=== PATIENT | male | born 1970 | race Two or more races ===

== ENCOUNTER 2016-05-12 12:21 | Inpatient (IN) | payer OTHER ==
[2016-05-12 13:36] VITALS: BMI 41.5
--- NOTE | 2016-05-12 16:47 | HP ---
CIWA Score - CIWA Score Nausea/Vomitin Muscle Tremors: 2 Anxiety: 3 Agitation: 2 Paroxysmal Sweats: 3 Orientation: 0-Oriented Tacttile Disturbances: 2-Mild Itch/Numbness/Burn Auditory Disturbances: 0-None Visual Disturbances: 0-None Headache: 0-None Present CIWA-Ar Total Score: 15 Admission ROS BHS - HPI Chief Complaint: I need help to stop using drugs and alcohol. Allergies/Adverse Reactions: Allergies Allergy/AdvReac Type Severity Reaction Status Date / Time No Known Allergies Allergy Verified 05/12/16 15:44 History of Present Illness: 45 y/o m pt with a h/o chronic alcoholism and crack abuse seeking detox. Exam Limitations: No Limitations - Ebola screening Have you traveled outside of the country in the last 21 days: No Have you had contact with anyone from an Ebola affected area: No Have you been sick,other than usual withdrawal symptoms: No Do you have a fever: No - Review of Systems Constitutional: Malaise, Night Sweats, Changes in sleep, Unintentional Wgt. Loss (approx. 100 lbs x 6 months) EENT: reports: Blurred Vision Respiratory: reports: No Symptoms reported Cardiac: reports: Chest Pain (on rt side), Chest Tightness GI: reports: Diarrhea : reports: Other (s/p orchiectomy) Musculoskeletal: reports: Back Pain Integumentary: reports: Rash Neuro: reports: Tremors Endocrine: reports: Increased Hunger, Increased Thirst, Increased Urine Hematology: reports: Easy Bleeding Psychiatric: reports: Agitated, Anxious, Depressed Other Systems: Reviewed and Negative Patient History - Patient Medical History Hx Anemia: No Hx Asthma: No Hx Chronic Obstructive Pulmonary Disease (COPD): No Hx Cancer: No Hx Cardiac Disorders: No Hx Congestive Heart Failure: No Hx Hypertension: Yes (not on meds) Hx Hypercholesterolemia: Yes (NO MED) Hx Pacemaker: No HX Cerebrovascular Accident: No Hx Seizures: No Hx Dementia: No Hx Diabetes: Yes (Type II not on meds.) Hx Gastrointestinal Disorders: No Hx Liver Disease: No Hx Genitourinary Disorders: No Hx Sexually Transmitted Disorders: No Hx Renal Disease (ESRD): No Hx Thyroid Disease: No Hx Human Immunodeficiency Virus (HIV): No (LAST 2010 NEGATIVE) Hx Hepatitis C: No Hx Depression: Yes Hx Suicide Attempt: No Hx Bipolar Disorder: Yes (NO MED) Hx Schizophrenia: No - Patient Surgical History Past Surgical History: No Hx Neurologic Surgery: No Hx Cataract Extraction: No Hx Cardiac Surgery: No Hx Lung Surgery: No Hx Breast Surgery: No Hx Breast Biopsy: No Hx Abdominal Surgery: No Hx Appendectomy: No Hx Cholecystectomy: No Hx Genitourinary Surgery: No Hx Section: No Hx Orthopedic Surgery: No Other Surgical History: 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 History Hx Alcohol Use: Yes Hx Substance Use: Yes Substance Use Type: Alcohol, Cocaine Hx Substance Use Treatment: Yes - Substances Abused Alcohol Route: Oral Frequency: Daily Amount used: 1/2 PINT WHISKEY/6PK BEER Age of first use: 11 Date of Last Use: 05/12/16 Cocaine Route: Smoking Frequency: Daily Amount used: 3-4 BAGS Age of first use: 14 Date of Last Use: 05/11/16 Family Disease History - Family Disease History Family Disease History: Diabetes: Mother, Other: Brother (ALCOHOL) Admission Physical Exam BHS - Vital Signs Vital Signs: Vital Signs - 24 hr 05/12/16 13:32 Temperature 98.9 F Pulse Rate 82 Respiratory 18 Rate Blood Pressure 159/72 45 y/o m obese pt aox3 in nad ambulating - Physical General Appearance: Yes: Disheveled, Obese HEENTM: Yes: EOMI, Hearing grossly Normal, Normocephalic, Normal Voice, KITTY, Nasal Congestion Respiratory: Yes: Chest Non-Tender, Lungs Clear, Normal Breath Sounds, No Respiratory Distress Neck: Yes: No masses,lesions,Nodules, Supple Breast: Yes: Within Normal Limits Cardiology: Yes: Regular Rhythm, Regular Rate, S1, S2 Abdominal: Yes: Non Tender, Soft, Increased Bowel Sounds, Surgical Scar (well healed 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) Genitourinary: Yes: Frequency, Other (only rt testicle) Back: Yes: Decreased Range of Motion Musculoskeletal: Yes: Back pain Extremities: Yes: Tremors Neurological: Yes: clinical researcher II-XII NML intact, Fully Oriented Integumentary: Yes: Rash (inner thighs) Lymphatic: Yes: Within Normal Limits - Diagnostic (1) Alcohol dependence with uncomplicated withdrawal Current Visit: Yes Status: Chronic (2) Cocaine dependence, uncomplicated Current Visit: Yes Status: Chronic (3) Diabetes mellitus Current Visit: Yes Status: Chronic Qualifiers: Diabetes mellitus type: type 2 (4) Hypertension Current Visit: Yes Status: Chronic Qualifiers: Hypertension type: essential hypertension Qualified Code(s): I10 - Essential (primary) hypertension (5) Nicotine dependence Current Visit: Yes Status: Chronic Qualifiers: Nicotine product type: cigarettes Substance use status: uncomplicated Qualified Code(s): F17.210 - Nicotine dependence, cigarettes, uncomplicated (6) Obesity Current Visit: Yes Status: Chronic Qualifiers: Obesity severity: unspecified obesity severity (7) History of orchiectomy, unilateral Current Visit: No Status: Inactive Cleared for Admission [facility] - Detox or Rehab [facility] Level of Care: Medically Managed Detox Regimen/Protocol: Librium [facility] Breath Alcohol Content Breath Alcohol Content: 0.008 Urine Drug Screen - Results Drug Screen Negative: No Urine Drug Screen Results: BOY-Cocaine
[2016-05-12] MEDS ORDERED: chlordiazePOXIDE HCL 25 MG CAPSULE PO PRN (17:11)
[2016-05-12] MEDS ORDERED: LOPERAMIDE HCL 2 MG CAPSULE PO PRN (17:11)
[2016-05-12] MEDS ORDERED: P-EPHED 60MG/TRIPROLIDI 2.5MG TABLET PO PRN (17:11)
[2016-05-12] MEDS ORDERED: ACETAMINOPHEN 325 MG TABLET (FP) PO PRN (17:11)
[2016-05-12] MEDS ORDERED: MAGNESIUM CITRATE 300 ML BOTTLE PO PRN (17:11)
[2016-05-12] MEDS ORDERED: MAG HYDROX/AL HYDROX/SIMETH 30 ML UNIT-DOSE CUP PO PRN (17:11)
[2016-05-12] MEDS ORDERED: IBUPROFEN 400 MG TABLET (FP) PO PRN (17:11)
[2016-05-12] MEDS ORDERED: MENTHOL/PHENOL 1 EACH UD MM PRN (17:11)
[2016-05-12] MEDS ORDERED: MAGNESIUM HYDROX 2400MG/30ML ORAL SUSPENSION 30 ML CUP PO PRN (17:11)
[2016-05-12] MEDS ORDERED: hydrOXYzine PAMOATE 25 MG CAPSULE (FP) PO PRN (17:11)
[2016-05-12] MEDS ORDERED: guaiFENesin/D-METHORPHAN HB 10 ML UNIT-DOSE CUPS PO PRN (17:11)
[2016-05-12] MEDS ORDERED: NICOTINE POLACRILEX 4 MG GUM BC PRN (17:11)
[2016-05-12] MEDS: chlordiazePOXIDE HCL 25 MG CAPSULE PO SCH (22:46)
[2016-05-12] MEDS: diphenhydrAMINE HCL 50 MG CAPSULE PO PRN (22:46)
[2016-05-12] MEDS: THIAMINE HCL 100 MG TABLET (FP) PO SCH (22:46)
[2016-05-12 23:00] LABS: URINE APPEARANCE CLEAR; URINE BILIRUBIN NEGATIVE (NEGATIVE); URINE BLOOD NEGATIVE (NEGATIVE); URINE COLOR LTYELLOW; URINE GLUCOSE (UA) NEGATIVE (NEGATIVE); URINE KETONE NEGATIVE (NEGATIVE); URINE LEUK ESTERASE NEGATIVE (NEGATIVE); URINE NITRITE NEGATIVE (NEGATIVE); URINE PROTEIN NEGATIVE (NEGATIVE); URINE UROBILINOGEN NEGATIVE E.U./dl (0.2-1.0)
[2016-05-12] MEDS: TOLNAFTATE 1% CREAM 15 GM TUBE TP SCH (23:09)
[2016-05-13] MEDS: chlordiazePOXIDE HCL 25 MG CAPSULE PO SCH ×4 (05:49→22:53)
--- NOTE | 2016-05-13 07:35 | CONSULT ---
[facility] Psychiatric Consult - Data Date of interview: 05/13/16 Admission source: [facility] Identifying data: This is 45 years old male with history of Bipolar disorder intopxicated with: Alcohol, Cocaine, Nicotine Substance Abuse History: - Smoking Cessation. Smoking history: Current every day smoker. Have you smoked in the past 12 months: Yes. Aproximately how many cigarettes per day: 10. Cigars Per Day: 0. Hx Chewing Tobacco Use: No. Initiated information on smoking cessation: Yes. 'Breaking Loose' booklet given : 05/12/16. - Substance & Tx. History. Hx Alcohol Use: Yes. Hx Substance Use : Yes. Substance Use Type: Alcohol, Cocaine. Hx Substance Use Treatment: Yes. - Substances Abused. Alcohol. Route: Oral. Frequency: Daily. Amount used: 1/2 PINT WHISKEY/6PK BEER. Age of first use: 11. Date of Last Use: 05/12. Cocaine. Route: Smoking. Frequency: Daily. Amount used: 3-4 BAGS. Age of first use: 14. Date of Last Use: 05/11/16 Medical History: Obesity morbid, DM, HTN Psychiatric History: Patient reports to carry Bipolar disorder, reports most recent psychiatric admission on more then 10 years ago, reports no m,edications taking prior to admission Physical/Sexual Abuse/Trauma History: Denies Additional Comment: Observation Mental Status Exam - Mental Status Exam Alert and Oriented to: Person Cognitive Function: Fair Patient Appearance: Unkempt Mood: Anxious Affect: Appropriate Patient Behavior: Cooperative Speech Pattern: Appropriate Voice Loudness: Normal Thought Process: Goal Oriented Thought Disorder: Being Controlled Hallucinations: Denies Suicidal Ideation: Denies Homicidal Ideation: Denies Insight/Judgement: Fair Sleep: Difficulty falling asleep Appetite: Weight gain Muscle strength/Tone: Normal Gait/Station: Shuffling Additional Comments: Observation Psychiatric Findings - Problem List ([place] 1, 2,3) (1) Alcohol dependence with uncomplicated withdrawal Current Visit: Yes Status: Chronic (2) Cocaine dependence, uncomplicated Current Visit: Yes Status: Chronic (3) Nicotine dependence Current Visit: Yes Status: Chronic Qualifiers: Nicotine product type: cigarettes Substance use status: uncomplicated Qualified Code(s): F17.210 - Nicotine dependence, cigarettes, uncomplicated (4) Bipolar disorder Current Visit: Yes Status: Suspected (5) Drug-induced mood disorder Current Visit: Yes Status: Acute - Initial Treatment Plan Initial Treatment Plan: Observation
[2016-05-13 10:14] LABS: MCH 29.1 pg (25.7-33.7); MCHC 32.2 g/dl (32.0-35.9); MEAN CELL VOLUME 90.2 fl (80-96); MEAN PLT VOLUME 9.7 fl (7.5-11.1); PLATELET COUNT 217 K/MM3 (134-434); RDW 14.3 % (11.9-15.9); WHITE BLOOD COUNT 10.6 K/mm3 (4.0-10.0)
[2016-05-13] MEDS: TOLNAFTATE 1% CREAM 15 GM TUBE TP SCH ×2 (10:18→23:36)
[2016-05-13] MEDS: PRENATAL VITAMINS W/ FOLIC ACID TABLET (FP) PO SCH (10:18)
[2016-05-13] MEDS: NICOTINE 21 MG/24 HOURS TOPICAL PATCH TD SCH (10:18)
[2016-05-13 10:41] LABS: ALBUMIN 3.8 g/dl (3.4-5.0); ALK PHOS 65 U/L (45-117); ANION GAP 9 (8-16); BILIRUBIN,TOTAL 0.9 mg/dL (0.2-1.0); CALCIUM 9.1 mg/dL (8.5-10.1); CO2 27 mmol/L (21-32); CREATININE 0.7 mg/dL (0.7-1.3); GLUCOSE,RANDOM 134 mg/dL (74-106); SGOT/AST 16 U/L (15-37); SGPT/ALT 34 U/L (12-78); TOT PROT 7.4 g/dl (6.4-8.2)
--- NOTE | 2016-05-13 11:38 | PN ---
S CIWA - CIWA Score Nausea/Vomitin Muscle Tremors: 2 Anxiety: 2 Agitation: 2 Paroxysmal Sweats: 2 Orientation: 0-Oriented Tacttile Disturbances: 0-None Auditory Disturbances: 0-None Visual Disturbances: 0-None Headache: 0-None Present CIWA-Ar Total Score: 10 BHS Progress Note (SOAP) Subjective: SWEATS , INTERRUPTED SLEEP Objective: 05/13/16 11:46 Vital Signs Temperature 99.1 F 05/13/16 09:58 Pulse Rate 74 05/13/16 09:58 Respiratory Rate 16 05/13/16 09:58 Blood Pressure 144/88 05/13/16 09:58 O2 Sat by Pulse Oximetry (%) Laboratory Tests 05/12/16 05/12/16 05/13/16 16:00 21:56 05:51 WBC RBC Hgb Hct MCV MCHC RDW Plt Count MPV Sodium Potassium Chloride Carbon Dioxide Anion Gap BUN Creatinine Creat Clearance w eGFR POC Glucometer 172 133 Random Glucose Hemoglobin A1c % Calcium Total Bilirubin AST ALT Alkaline Phosphatase Total Protein Albumin Urine Color Ltyellow Urine Appearance Clear Urine pH 6.0 Ur Specific [place] 1.018 Urine Protein Negative Urine Glucose (UA) Negative Urine Ketones Negative Urine Blood Negative Urine Nitrite Negative Urine Bilirubin Negative Urine Urobilinogen Negative Ur Leukocyte Esterase Negative 05/13/16 05/13/16 05/13/16 06:20 06:20 06:20 WBC 10.6 H RBC 5.48 Hgb 15.9 Hct 49.4 H MCV 90.2 MCHC 32.2 RDW 14.3 Plt Count 217 MPV 9.7 Sodium 139 Potassium 4.8 Chloride 103 Carbon Dioxide 27 Anion Gap 9 BUN 13 Creatinine 0.7 Creat Clearance w eGFR > 60 POC Glucometer Random Glucose 134 H Hemoglobin A1c % 6.5 H Calcium 9.1 Total Bilirubin 0.9 AST 16 D ALT 34 D Alkaline Phosphatase 65 Total Protein 7.4 Albumin 3.8 Urine Color Urine Appearance Urine pH Ur Specific [place] Urine Protein Urine Glucose (UA) Urine Ketones Urine Blood Urine Nitrite Urine Bilirubin Urine Urobilinogen Ur Leukocyte Esterase PT AOX3 IN NAD AMBULATING Assessment: 05/13/16 11:47 WITHDRAWL SX'S NIDDM Plan: CONT. DETOX INCREASE FLUIDS ASA 81 MG METFORMIN 500MG IN AM
--- NOTE | 2016-05-13 16:12 | EKG ---
Test Reason : Blood Pressure : / mmHG Vent. Rate : 068 BPM Atrial Rate : 068 BPM P-R Int : 156 ms QRS Dur : 078 ms QT Int : 396 ms P-R-T Axes : 017 -02 021 degrees QTc Int : 421 ms NORMAL SINUS RHYTHM MINIMAL VOLTAGE CRITERIA FOR LVH, MAY BE NORMAL VARIANT SEPTAL INFARCT , AGE UNDETERMINED ABNORMAL ECG NO PREVIOUS ECGS AVAILABLE Confirmed by ZAC MCINTYRE MD ([id number]) on 05/13/2016 4:12:17 PM Referred By: Confirmed By:ZAC MCINTYRE MD
[2016-05-13] MEDS: THIAMINE HCL 100 MG TABLET (FP) PO SCH (22:53)
[2016-05-13] MEDS: diphenhydrAMINE HCL 50 MG CAPSULE PO PRN (22:55)
[2016-05-14] MEDS: chlordiazePOXIDE HCL 25 MG CAPSULE PO SCH ×3 (05:59→18:05)
[2016-05-14] MEDS: NICOTINE 21 MG/24 HOURS TOPICAL PATCH TD SCH (10:29)
[2016-05-14] MEDS: PRENATAL VITAMINS W/ FOLIC ACID TABLET (FP) PO SCH (10:29)
[2016-05-14] MEDS: TOLNAFTATE 1% CREAM 15 GM TUBE TP SCH ×2 (10:29→22:17)
--- NOTE | 2016-05-14 11:43 | PN ---
[facility] CIWA - CIWA Score Nausea/Vomitin-No Nausea/No Vomiting Muscle Tremors: 4-Moderate,w/Arms Extend Anxiety: 2 Agitation: 3 Paroxysmal Sweats: 3 Orientation: 0-Oriented Tacttile Disturbances: 0-None Auditory Disturbances: 0-None Visual Disturbances: 0-None Headache: 0-None Present CIWA-Ar Total Score: 12 S Progress Note (SOAP) Subjective: sweats shakes diarrhea interrupted sleep Objective: 05/14/16 11:39 Vital Signs Temperature 97.7 F 05/14/16 09:47 Pulse Rate 78 05/14/16 09:47 Respiratory Rate 16 05/14/16 09:47 Blood Pressure 133/78 05/14/16 09:47 O2 Sat by Pulse Oximetry (%) Laboratory Tests 05/12/16 05/12/16 05/13/16 16:00 21:56 05:51 WBC RBC Hgb Hct MCV MCHC RDW Plt Count MPV Sodium Potassium Chloride Carbon Dioxide Anion Gap BUN Creatinine Creat Clearance w eGFR POC Glucometer 172 133 Random Glucose Hemoglobin A1c % Calcium Total Bilirubin AST ALT Alkaline Phosphatase Total Protein Albumin Urine Color Ltyellow Urine Appearance Clear Urine pH 6.0 Ur Specific [place] 1.018 Urine Protein Negative Urine Glucose (UA) Negative Urine Ketones Negative Urine Blood Negative Urine Nitrite Negative Urine Bilirubin Negative Urine Urobilinogen Negative Ur Leukocyte Esterase Negative RPR Titer 05/13/16 05/13/16 05/13/16 06:20 06:20 06:20 WBC 10.6 H RBC 5.48 Hgb 15.9 Hct 49.4 H MCV 90.2 MCHC 32.2 RDW 14.3 Plt Count 217 MPV 9.7 Sodium 139 Potassium 4.8 Chloride 103 Carbon Dioxide 27 Anion Gap 9 BUN 13 Creatinine 0.7 Creat Clearance w eGFR > 60 POC Glucometer Random Glucose 134 H Hemoglobin A1c % Calcium 9.1 Total Bilirubin 0.9 AST 16 D ALT 34 D Alkaline Phosphatase 65 Total Protein 7.4 Albumin 3.8 Urine Color Urine Appearance Urine pH Ur Specific [place] Urine Protein Urine Glucose (UA) Urine Ketones Urine Blood Urine Nitrite Urine Bilirubin Urine Urobilinogen Ur Leukocyte Esterase RPR Titer Nonreactive 05/13/16 05/13/16 06:20 16:30 WBC RBC Hgb Hct MCV MCHC RDW Plt Count MPV Sodium Potassium Chloride Carbon Dioxide Anion Gap BUN Creatinine Creat Clearance w eGFR POC Glucometer 165 Random Glucose Hemoglobin A1c % 6.5 H Calcium Total Bilirubin AST ALT Alkaline Phosphatase Total Protein Albumin Urine Color Urine Appearance Urine pH Ur Specific [place] Urine Protein Urine Glucose (UA) Urine Ketones Urine Blood Urine Nitrite Urine Bilirubin Urine Urobilinogen Ur Leukocyte Esterase RPR Titer awake/alert ambulating no acute distress Assessment: 05/14/16 11:42 withdrawal sx Plan: continue detox increase fluids immodium prn
[2016-05-14] MEDS: diphenhydrAMINE HCL 50 MG CAPSULE PO PRN (22:16)
[2016-05-14] MEDS: chlordiazePOXIDE 5 MG CAPSULE PO SCH (22:16)
[2016-05-14] MEDS: THIAMINE HCL 100 MG TABLET (FP) PO SCH (22:16)
[2016-05-15] MEDS: chlordiazePOXIDE 5 MG CAPSULE PO SCH ×3 (06:16→17:33)
[2016-05-15] MEDS: PRENATAL VITAMINS W/ FOLIC ACID TABLET (FP) PO SCH (10:14)
[2016-05-15] MEDS: TOLNAFTATE 1% CREAM 15 GM TUBE TP SCH ×2 (10:15→22:11)
[2016-05-15] MEDS: NICOTINE 21 MG/24 HOURS TOPICAL PATCH TD SCH (10:15)
--- NOTE | 2016-05-15 10:24 | PN ---
S Progress Note (SOAP) Subjective: ALERT,IRRITABLE,INTERRUPTED SLEEP Objective: 05/15/16 10:23 Vital Signs Temperature 98.4 F 05/15/16 09:54 Pulse Rate 72 05/15/16 09:54 Respiratory Rate 20 05/15/16 09:54 Blood Pressure 136/67 05/15/16 09:54 O2 Sat by Pulse Oximetry (%) 05/15/16 10:23 BM 169 Assessment: 05/15/16 10:23 WITHDRAWAL SYMPTOM Plan: CONTINUE DETOX,BGM MONITORING,DISCHARGE IN AM
--- NOTE | 2016-05-15 18:32 | PN ---
BHS Progress Note Note: RECEIVED NURSE CALL FINGER STICK 200 CONTINUE DETOX
[2016-05-15] MEDS: chlordiazePOXIDE HCL 10 MG CAPSULE PO SCH (22:11)
[2016-05-15] MEDS: diphenhydrAMINE HCL 50 MG CAPSULE PO PRN (22:11)
[2016-05-15] MEDS: THIAMINE HCL 100 MG TABLET (FP) PO SCH (22:11)
[2016-05-16] MEDS: chlordiazePOXIDE HCL 10 MG CAPSULE PO SCH (05:51)
--- NOTE | 2016-05-16 10:49 | DS ---
[facility] Detox Discharge Summary Admission Date: 05/12/16 Discharge Date: 05/16/16 - History Present History: Alcohol Dependence, Cocaine Dependence Pertinent Past History: DM, HTN, Obesity - Physical Exam Results Vital Signs: Vital Signs Temperature 97.1 F L 05/16/16 06:00 Pulse Rate 71 05/16/16 06:00 Respiratory Rate 20 05/16/16 06:00 Blood Pressure 135/71 05/16/16 06:00 O2 Sat by Pulse Oximetry (%) Pertinent Admission Physical Exam Findings: withdrawal sx Laboratory Last Values WBC 10.6 K/mm3 (4.0-10.0) H 05/13/16 06:20 RBC 5.48 M/mm3 (4.00-5.60) 05/13/16 06:20 Hgb 15.9 GM/dL (11.7-16.9) 05/13/16 06:20 Hct 49.4 % (35.4-49) H 05/13/16 06:20 MCV 90.2 fl (80-96) 05/13/16 06:20 MCHC 32.2 g/dl (32.0-35.9) 05/13/16 06:20 RDW 14.3 % (11.9-15.9) 05/13/16 06:20 Plt Count 217 K/MM3 (134-434) 05/13/16 06:20 MPV 9.7 fl (7.5-11.1) 05/13/16 06:20 Sodium 139 mmol/L (136-145) 05/13/16 06:20 Potassium 4.8 mmol/L (3.5-5.1) 05/13/16 06:20 Chloride 103 mmol/L (98-107) 05/13/16 06:20 Carbon Dioxide 27 mmol/L (21-32) 05/13/16 06:20 Anion Gap 9 (8-16) 05/13/16 06:20 BUN 13 mg/dL (7-18) 05/13/16 06:20 Creatinine 0.7 mg/dL (0.7-1.3) 05/13/16 06:20 Creat Clearance w eGFR > 60 (>60) 05/13/16 06:20 POC Glucometer 232 UNITS (()) 05/16/16 05:50 Random Glucose 134 mg/dL (74-106) H 05/13/16 06:20 Hemoglobin A1c % 6.5 % (4.8-6.0) H 05/13/16 06:20 Calcium 9.1 mg/dL (8.5-10.1) 05/13/16 06:20 Total Bilirubin 0.9 mg/dL (0.2-1.0) 05/13/16 06:20 AST 16 U/L (15-37) D 05/13/16 06:20 ALT 34 U/L (12-78) D 05/13/16 06:20 Alkaline Phosphatase 65 U/L (45-117) 05/13/16 06:20 Total Protein 7.4 g/dl (6.4-8.2) 05/13/16 06:20 Albumin 3.8 g/dl (3.4-5.0) 05/13/16 06:20 Urine Color Ltyellow 05/12/16 21:56 Urine Appearance Clear 05/12/16 21:56 Urine pH 6.0 (5.0-8.0) 05/12/16 21:56 Ur Specific [place] 1.018 (1.001-1.035) 05/12/16 21:56 Urine Protein Negative (NEGATIVE) 05/12/16 21:56 Urine Glucose (UA) Negative (NEGATIVE) 05/12/16 21:56 Urine Ketones Negative (NEGATIVE) 05/12/16 21:56 Urine Blood Negative (NEGATIVE) 05/12/16 21:56 Urine Nitrite Negative (NEGATIVE) 05/12/16 21:56 Urine Bilirubin Negative (NEGATIVE) 05/12/16 21:56 Urine Urobilinogen Negative E.U./dl (0.2-1.0) 05/12/16 21:56 Ur Leukocyte Esterase Negative (NEGATIVE) 05/12/16 21:56 RPR Titer Nonreactive (NONREACTIVE) 05/13/16 06:20 Labs noted - Treatment Hospital Course: Detox Protocol Followed, Detoxed Safely, Responded well, Discharged Condition Good - Medication Discharge Medications: Ambulatory Orders NK [No Known Home Medication] 02/16/16 - Diagnosis (1) Alcohol dependence with uncomplicated withdrawal Current Visit: Yes Status: Acute (2) Cocaine dependence, uncomplicated Current Visit: Yes Status: Acute (3) Diabetes mellitus Current Visit: Yes Status: Chronic Qualifiers: Diabetes mellitus type: type 2 Diabetes mellitus complication status: without complication Diabetes mellitus buttermaker insulin use: without buttermaker use Qualified Code(s): E11.9 - Type 2 diabetes mellitus without complications (4) Hypertension Current Visit: Yes Status: Chronic Qualifiers: Hypertension type: essential hypertension Qualified Code(s): I10 - Essential (primary) hypertension (5) Nicotine dependence Current Visit: Yes Status: Acute Qualifiers: Nicotine product type: cigarettes Substance use status: uncomplicated Qualified Code(s): F17.210 - Nicotine dependence, cigarettes, uncomplicated (6) Obesity Current Visit: Yes Status: Chronic Qualifiers: Obesity severity: morbid - AMA Did Patient Leave Against Medical Advice: No
[2016-05-16 11:25] VITALS: BP 135/77; PULSE 75; TEMP 97.9
== END 2016-05-16 10:35 | disposition home or self-care (01) | DRG 897 ==
LOC: YASAS 12:21 → Y6N 17:38
PROVIDERS: ADMIT Internal Medicine Addiction Medicine; ATTEND Internal Medicine Addiction Medicine
PROC: HZ2ZZZZ Detoxification Services for Substance Abuse Treatment (ICD-10-PCS; principal; 2016-05-12)
DX: F10.230 Alcohol dependence with withdrawal, uncomplicated (principal); F14.20 Cocaine dependence, uncomplicated; Z68.41 Body mass index [BMI] 40.0-44.9, adult; F17.210 Nicotine dependence, cigarettes, uncomplicated; F31.9 Bipolar disorder, unspecified; F19.24 Other psychoactive substance dependence with psychoactive substance-induced mood disorder; E11.9 Type 2 diabetes mellitus without complications; I10 Essential (primary) hypertension; E66.01 Morbid (severe) obesity due to excess calories
CPT/HCPCS: 36415; 80053; 81003; 83036; 85027; 86593; 93005; 93010

== ENCOUNTER 2018-05-14 10:54 | Inpatient (IN) | payer OTHER ==
[2018-05-14 12:43] VITALS: BMI 31.5
--- NOTE | 2018-05-14 12:49 | HP ---
CIWA Score Nausea/Vomitin Muscle Tremors: 4-Moderate,w/Arms Extend Anxiety: 4-Mod. Anxious/Guarded Agitation: 0-Normal Activity Paroxysmal Sweats: No Perspiration Orientation: 0-Oriented Tacttile Disturbances: 0-None Auditory Disturbances: 1-Very Mild Visual Disturbances: 1-Very Mild Sensitivity Headache: 2-Mild CIWA-Ar Total Score: 14 - Admission Criteria OASAS Guidelines: Admission for Medically Managed Detox: Requires at least one of the followin. CIWA greater than 12 2. Seizures within the past 24 hours 3. Delirium tremens within the past 24 hours 4. Hallucinations within the past 24 hours 5. Acute intervention needed for co occurring medical disorder 6. Acute intervention needed for co occurring psychiatric disorder 7. Severe withdrawal that cannot be handled at a lower level of care (continued vomiting, continued diarrhea, abnormal vital signs) requiring intravenous medication and/or fluids 8. Patient presents the following: CIWA greater than 12 Admission Criteria Met: Admission criteria met Admission ROS S - [facility] Chief Complaint: If I don't get alcohol, I get so mad, so agitated, I have to have it, that makes me know I need help. Allergies/Adverse Reactions: Allergies Allergy/AdvReac Type Severity Reaction Status Date / Time No Known Allergies Allergy Verified 05/12/16 15:44 History of Present Illness: 47 yo gentleman here for detox from alcohol. Also using crack, though urine tox negative for same. Denies seizures, does have black outs. States he was seen in [place] ED yesterday because he was 'feeling bad' and referred here for detox. He reports he does have an apartment, he does have support from his mother. Longest time sober was six years while connected with Narcotics Anonymous but relapsed in 2013 - he is not sure what happened but states 'I just lost my connection to that power to not use'. Exam Limitations: Clinical Condition - Ebola screening Have you traveled outside of the country in the last 21 days: No (N) Have you had contact with anyone from an Ebola affected area: No Have you been sick,other than usual withdrawal symptoms: No Do you have a fever: No - Review of Systems Constitutional: Loss of Appetite, Changes in sleep, Weakness EENT: reports: No Symptoms Reported Respiratory: reports: No Symptoms reported Cardiac: reports: No Symptoms Reported GI: reports: Poor Appetite, Abdominal cramping : reports: Frequency Musculoskeletal: reports: No Symptoms Reported Integumentary: reports: Dryness Neuro: reports: Headache, Tremors Endocrine: reports: No Symptoms Reported Hematology: reports: No Symptoms Reported Psychiatric: reports: Judgement Intact, Mood/Affect Appropiate, Orientated x3, Anxious Other Systems: Reviewed and Negative Patient History - Patient Medical History Hx Anemia: No Hx Asthma: No Hx Chronic Obstructive Pulmonary Disease (COPD): No Hx Cancer: Yes (history of testicle cancer 1973) Hx Cardiac Disorders: No Hx Congestive Heart Failure: No Hx Hypertension: Yes (not on meds) Hx Hypercholesterolemia: Yes (NO MED) Hx Pacemaker: No HX Cerebrovascular Accident: No Hx Seizures: No Hx Dementia: No Hx Diabetes: Yes (Type II diet controlled.) Hx Gastrointestinal Disorders: No Hx Liver Disease: No Hx Genitourinary Disorders: No Hx Sexually Transmitted Disorders: No Hx Renal Disease (ESRD): No Hx Thyroid Disease: No Hx Human Immunodeficiency Virus (HIV): No (LAST 2010 NEGATIVE) Hx Hepatitis C: No Hx Depression: Yes (hx hospitalized, hx meds(rispiradol, zoloft, gabapentin)) Hx Suicide Attempt: Yes (2013 - tried to jump off bridge) Hx Bipolar Disorder: Yes (? no meds) Hx Schizophrenia: Yes (sometimes hears voices) - Patient Surgical History Past Surgical History: No Hx Neurologic Surgery: No Hx Cataract Extraction: No Hx Cardiac Surgery: No Hx Lung Surgery: No Hx Breast Surgery: No Hx Breast Biopsy: No Hx Abdominal Surgery: No Hx Appendectomy: No Hx Cholecystectomy: No Hx Genitourinary Surgery: No Hx Section: No Hx Orthopedic Surgery: No Other Surgical History: tumor in left testicle ca -removed 1973 ON REMISSION Anesthesia Reaction: No - PPD History Date: 02/18/16 Results: 0 MM - Reproductive History Patient is a Female of Child Bearing Age (11 -55 yrs old): No (male) - Smoking Cessation Smoking history: Current every day smoker Have you smoked in the past 12 months: Yes Aproximately how many cigarettes per day: 10 Cigars Per Day: 0 Hx Chewing Tobacco Use: No Initiated information on smoking cessation: Yes 'Breaking Loose' booklet given: 05/14/18 (give on floor) - Substance & Tx. History Hx Alcohol Use: Yes Hx Substance Use: Yes Substance Use Type: Alcohol, Marijuana Hx Substance Use Treatment: Yes (detox, rehab) - Substances Abused alcohol Route: Oral Frequency: Daily Amount used: 1 pint liquor; four 24 oz beers Age of first use: 12 Date of Last Use: 05/14/18 marijuana Route: Smoking Frequency: 1-3 times last 30 days Amount used: 1 joint Age of first use: 11 Date of Last Use: 05/13/18 crack Route: Smoking Frequency: 3-6 times per week Amount used: $20 Age of first use: 12 Date of Last Use: 05/11/18 Family Disease History - Family Disease History Family Disease History: Diabetes: Mother (living ), Other: Father (, cirrhosis), Mother, Brother (two - one with alcohol, one with digestive problesms) Admission Physical Exam [facility] - Vital Signs Vital Signs: Vital Signs - 24 hr 05/14/18 12:41 Temperature 98.5 F Pulse Rate 77 Respiratory 18 Rate Blood Pressure 145/82 - Physical General Appearance: Yes: Nourished, Appropriately Dressed, Moderate Distress, Tremorous, Anxious HEENTM: Yes: EOMI, Hearing grossly Normal, Normocephalic, Normal Voice, Pharynx Normal Respiratory: Yes: Normal Breath Sounds, No Respiratory Distress Neck: Yes: No masses,lesions,Nodules Breast: Yes: Breast Exam Deferred Cardiology: Yes: Regular Rhythm, Regular Rate Abdominal: Yes: Soft Genitourinary: Yes: Frequency Back: Yes: Normal Inspection Musculoskeletal: Yes: full range of Motion, Gait Steady Extremities: Yes: Normal Inspection, Normal Range of Motion, Non-Tender Neurological: Yes: Fully Oriented, Alert, Motor Strength 5/5, Normal Mood/Affect , Normal Response Integumentary: Yes: Normal Color, Warm Lymphatic: Yes: Within Normal Limits - Diagnostic (1) Alcohol dependence with uncomplicated withdrawal Current Visit: Yes Status: Chronic (2) Diabetes mellitus type 2, diet-controlled Current Visit: Yes Status: Chronic (3) HTN (hypertension) Current Visit: Yes Status: Acute Qualifiers: Hypertension type: essential hypertension Qualified Code(s): I10 - Essential (primary) hypertension (4) Nicotine dependence Current Visit: Yes Status: Chronic Qualifiers: Nicotine product type: cigarettes Substance use status: uncomplicated Qualified Code(s): F17.210 - Nicotine dependence, cigarettes, uncomplicated Cleared for Admission [facility] - Detox or Rehab [facility] Level of Care: Medically Managed Detox Regimen/Protocol: Librium [facility] Breath Alcohol Content Breath Alcohol Content: 0.008 Urine Drug Screen - Results Drug Screen Negative: No Urine Drug Screen Results: THC-Marijuana Inpatient Rehab Admission - Rehab Decision to Admit Inpatient rehab admission?: No
[2018-05-14] MEDS ORDERED: MENTHOL/PHENOL 1 EACH UD MM PRN (13:11)
[2018-05-14] MEDS ORDERED: NICOTINE POLACRILEX 4 MG GUM BUC PRN (13:11)
[2018-05-14] MEDS ORDERED: IBUPROFEN 400 MG TABLET (FP) PO PRN (13:11)
[2018-05-14] MEDS ORDERED: MAGNESIUM HYDROX 2400MG/30ML ORAL SUSPENSION 30 ML CUP PO PRN (13:11)
[2018-05-14] MEDS ORDERED: ACETAMINOPHEN 325 MG TABLET (FP) PO PRN (13:11)
[2018-05-14] MEDS ORDERED: MAGNESIUM CITRATE 300 ML BOTTLE PO PRN (13:11)
[2018-05-14] MEDS ORDERED: P-EPHED 60MG/TRIPROLIDI 2.5MG TABLET PO PRN (13:11)
[2018-05-14] MEDS ORDERED: guaiFENesin/D-METHORPHAN HB 10 ML UNIT-DOSE CUPS PO PRN (13:11)
[2018-05-14] MEDS ORDERED: chlordiazePOXIDE HCL 25 MG CAPSULE PO PRN (13:11)
[2018-05-14] MEDS: chlordiazePOXIDE HCL 25 MG CAPSULE PO SCH ×2 (18:28→22:04)
[2018-05-14] MEDS: MELATONIN 5 MG TABLETS PO PRN (22:04)
[2018-05-14] MEDS: THIAMINE HCL 100 MG TABLET (FP) PO SCH (22:04)
[2018-05-15] MEDS: chlordiazePOXIDE HCL 25 MG CAPSULE PO SCH ×4 (05:34→22:42)
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
[2018-05-15] MEDS: PRENATAL VITAMINS W/ FOLIC ACID TABLET (FP) PO SCH (10:06)
[2018-05-15 10:43] LABS: ALK PHOS 40 U/L (45-117); ANION GAP 4 MMOL/L (8-16); BILIRUBIN,TOTAL 0.7 mg/dL (0.2-1); BLOOD UREA NITROGEN 13 mg/dL (7-18); CALCIUM 8.4 mg/dL (8.5-10.1); CHLORIDE 107 mmol/L (98-107); CO2 30 mmol/L (21-32); CREATININE 0.7 mg/dL (0.55-1.3); GLUCOSE,RANDOM 115 mg/dL (74-106); POTASSIUM 3.9 mmol/L (3.5-5.1); SGOT/AST 17 U/L (15-37); SGPT/ALT 24 U/L (13-61); SODIUM 141 mmol/L (136-145); TOT PROT 6.1 g/dl (6.4-8.2)
[2018-05-15 10:55] LABS: HEMATOCRIT 43.1 % (35.4-49); HEMOGLOBIN 14.4 GM/dL (11.7-16.9); MCH 31.3 pg (25.7-33.7); MCHC 33.6 g/dl (32.0-35.9); MEAN CELL VOLUME 93.4 fl (80-96); MEAN PLT VOLUME 8.5 fl (7.5-11.1); PLATELET COUNT 213 K/MM3 (134-434); RBC 4.61 M/mm3 (4.00-5.60); RDW 13.9 % (11.9-15.9); WHITE BLOOD COUNT 6.8 K/mm3 (4.0-10.0)
--- NOTE | 2018-05-15 14:29 | PN ---
[facility] CIWA - CIWA Score Nausea/Vomitin-Mild Nausea/No Vomiting Muscle Tremors: 2 Anxiety: 2 Agitation: 2 Paroxysmal Sweats: 1-Minimal Palms Moist Orientation: 1-Uncertain about Date Tacttile Disturbances: 0-None Auditory Disturbances: 0-None Visual Disturbances: 0-None Headache: 1-Very Mild CIWA-Ar Total Score: 10 S Progress Note (SOAP) Subjective: tremor sweating tolerate food and fluid well social with peers in day room Objective: 05/15/18 14:28 Vital Signs Temperature 97.1 F L 05/15/18 13:22 Pulse Rate 66 05/15/18 13:22 Respiratory Rate 18 05/15/18 13:22 Blood Pressure 128/74 05/15/18 13:22 O2 Sat by Pulse Oximetry (%) Laboratory Last Values WBC 6.8 K/mm3 (4.0-10.0) 05/15/18 07:50 RBC 4.61 M/mm3 (4.00-5.60) 05/15/18 07:50 Hgb 14.4 GM/dL (11.7-16.9) 05/15/18 07:50 Hct 43.1 % (35.4-49) 05/15/18 07:50 MCV 93.4 fl (80-96) 05/15/18 07:50 MCH 31.3 pg (25.7-33.7) 05/15/18 07:50 MCHC 33.6 g/dl (32.0-35.9) 05/15/18 07:50 RDW 13.9 % (11.9-15.9) 05/15/18 07:50 Plt Count 213 K/MM3 (134-434) 05/15/18 07:50 MPV 8.5 fl (7.5-11.1) D 05/15/18 07:50 Sodium 141 mmol/L (136-145) 05/15/18 07:50 Potassium 3.9 mmol/L (3.5-5.1) 05/15/18 07:50 Chloride 107 mmol/L (98-107) 05/15/18 07:50 Carbon Dioxide 30 mmol/L (21-32) 05/15/18 07:50 Anion Gap 4 MMOL/L (8-16) L 05/15/18 07:50 BUN 13 mg/dL (7-18) 05/15/18 07:50 Creatinine 0.7 mg/dL (0.55-1.3) 05/15/18 07:50 Creat Clearance w eGFR > 60 (>60) 05/15/18 07:50 Random Glucose 115 mg/dL (74-106) H 05/15/18 07:50 Calcium 8.4 mg/dL (8.5-10.1) L 05/15/18 07:50 Total Bilirubin 0.7 mg/dL (0.2-1) 05/15/18 07:50 AST 17 U/L (15-37) 05/15/18 07:50 ALT 24 U/L (13-61) 05/15/18 07:50 Alkaline Phosphatase 40 U/L (45-117) L 05/15/18 07:50 Total Protein 6.1 g/dl (6.4-8.2) L 05/15/18 07:50 Albumin 3.0 g/dl (3.4-5.0) L 05/15/18 07:50 RPR Titer Nonreactive (NONREACTIVE) 05/15/18 07:50 lab noted Assessment: 05/15/18 14:28 withdrawal sx Plan: continue detox
--- NOTE | 2018-05-15 22:14 | EKG ---
Test Reason : Blood Pressure : / mmHG Vent. Rate : 061 BPM Atrial Rate : 061 BPM P-R Int : 158 ms QRS Dur : 080 ms QT Int : 412 ms P-R-T Axes : 033 042 048 degrees QTc Int : 414 ms NORMAL SINUS RHYTHM SEPTAL INFARCT (CITED ON OR BEFORE 12-MAY-2016) ABNORMAL ECG WHEN COMPARED WITH ECG OF 12-MAY-2016 18:25, NO SIGNIFICANT CHANGE WAS FOUND Confirmed by EMILY JASON MD ([id number]) on 05/15/2018 10:14:27 PM Referred By: MORENITA FALL Confirmed By:EMILY JASON MD
[2018-05-15] MEDS: THIAMINE HCL 100 MG TABLET (FP) PO SCH (22:42)
[2018-05-15] MEDS: MAG HYDROX/AL HYDROX/SIMETH 30 ML UNIT-DOSE CUP PO PRN (22:43)
[2018-05-15] MEDS: MELATONIN 5 MG TABLETS PO PRN (22:43)
[2018-05-16] MEDS: chlordiazePOXIDE HCL 25 MG CAPSULE PO SCH ×2 (05:40→10:18)
[2018-05-16] MEDS: PRENATAL VITAMINS W/ FOLIC ACID TABLET (FP) PO SCH (10:17)
--- NOTE | 2018-05-16 13:04 | PN ---
[facility] CIWA - CIWA Score Nausea/Vomitin-No Nausea/No Vomiting Muscle Tremors: 2 Anxiety: 1-Mildly Anxious Agitation: 1-Slight > Activity Paroxysmal Sweats: 1-Minimal Palms Moist Orientation: 1-Uncertain about Date Tacttile Disturbances: 0-None Auditory Disturbances: 0-None Visual Disturbances: 0-None Headache: 1-Very Mild CIWA-Ar Total Score: 7 S Progress Note (SOAP) Subjective: tremor sweating otherwise feeling ok Objective: 05/16/18 13:02 Vital Signs Temperature 96.9 F L 05/16/18 09:13 Pulse Rate 74 05/16/18 09:13 Respiratory Rate 18 05/16/18 09:13 Blood Pressure 119/82 05/16/18 09:13 O2 Sat by Pulse Oximetry (%) Laboratory Last Values WBC 6.8 K/mm3 (4.0-10.0) 05/15/18 07:50 RBC 4.61 M/mm3 (4.00-5.60) 05/15/18 07:50 Hgb 14.4 GM/dL (11.7-16.9) 05/15/18 07:50 Hct 43.1 % (35.4-49) 05/15/18 07:50 MCV 93.4 fl (80-96) 05/15/18 07:50 MCH 31.3 pg (25.7-33.7) 05/15/18 07:50 MCHC 33.6 g/dl (32.0-35.9) 05/15/18 07:50 RDW 13.9 % (11.9-15.9) 05/15/18 07:50 Plt Count 213 K/MM3 (134-434) 05/15/18 07:50 MPV 8.5 fl (7.5-11.1) D 05/15/18 07:50 Sodium 141 mmol/L (136-145) 05/15/18 07:50 Potassium 3.9 mmol/L (3.5-5.1) 05/15/18 07:50 Chloride 107 mmol/L (98-107) 05/15/18 07:50 Carbon Dioxide 30 mmol/L (21-32) 05/15/18 07:50 Anion Gap 4 MMOL/L (8-16) L 05/15/18 07:50 BUN 13 mg/dL (7-18) 05/15/18 07:50 Creatinine 0.7 mg/dL (0.55-1.3) 05/15/18 07:50 Creat Clearance w eGFR > 60 (>60) 05/15/18 07:50 Random Glucose 115 mg/dL (74-106) H 05/15/18 07:50 Calcium 8.4 mg/dL (8.5-10.1) L 05/15/18 07:50 Total Bilirubin 0.7 mg/dL (0.2-1) 05/15/18 07:50 AST 17 U/L (15-37) 05/15/18 07:50 ALT 24 U/L (13-61) 05/15/18 07:50 Alkaline Phosphatase 40 U/L (45-117) L 05/15/18 07:50 Total Protein 6.1 g/dl (6.4-8.2) L 05/15/18 07:50 Albumin 3.0 g/dl (3.4-5.0) L 05/15/18 07:50 RPR Titer Nonreactive (NONREACTIVE) 05/15/18 07:50 lab noted Assessment: 05/16/18 13:03 withdrawal sx 05/16/18 13:03 social with peers in [address] discuss aftercare with staff Plan: continue detox
[2018-05-16] MEDS: chlordiazePOXIDE 5 MG CAPSULE PO SCH ×2 (17:57→22:16)
[2018-05-16] MEDS ORDERED: BENZOCAINE 28 GM HEMORRHOIDAL OINTMENT PR PRN (20:51)
[2018-05-16] MEDS ORDERED: DOCUSATE SODIUM 100 MG CAPSULE (FP) PO PRN (20:51)
--- NOTE | 2018-05-16 20:57 | PN ---
[facility] Progress Note (SOAP) Subjective: C/o pain in hemorrhoids x 1 day. States hemorrhoids x years. Denies bleeding. Objective: One small enlarged blood vessels at anal sphincter. No bleeding. No surrounding erythema or tenderness. Vital Signs 05/16/18 05/16/18 13:27 18:09 Temperature 98.3 F 98.4 F Pulse Rate 74 68 Respiratory 18 18 Rate Blood Pressure 126/71 118/69 Assessment: External hemorrhoid. Plan: Hemorrhoid cream to anal area Q4H prn. Colace 100 mg PO BID prn for constipation. Encourage increased water intake.
[2018-05-16] MEDS: THIAMINE HCL 100 MG TABLET (FP) PO SCH (22:16)
[2018-05-16] MEDS: MELATONIN 5 MG TABLETS PO PRN (22:16)
[2018-05-17] MEDS: chlordiazePOXIDE 5 MG CAPSULE PO SCH ×2 (05:54→10:39)
[2018-05-17] MEDS: PRENATAL VITAMINS W/ FOLIC ACID TABLET (FP) PO SCH (10:39)
[2018-05-17] MEDS: LOPERAMIDE HCL 2 MG CAPSULE PO PRN (12:46)
[2018-05-17] MEDS ORDERED: PSYLLIUM 5.85 GM PACKET PO SCH (14:00)
--- NOTE | 2018-05-17 14:49 | PN ---
[facility] CIWA - CIWA Score Nausea/Vomitin-No Nausea/No Vomiting Muscle Tremors: None Anxiety: 0-No Anxiety, at Ease Agitation: 0-Normal Activity Paroxysmal Sweats: 1-Minimal Palms Moist Orientation: 0-Oriented Tacttile Disturbances: 0-None Auditory Disturbances: 0-None Visual Disturbances: 0-None Headache: 1-Very Mild CIWA-Ar Total Score: 2 S Progress Note (SOAP) Subjective: feeling better less tremor mild sweating little restlessness sleep better at night reported has hemorrhoid on and off x 1+ years anus been examined by a medical provider yesterday and today request for second opinion about his hemorrhoid that he was busy over the year never been seen by a medical provider science writer examined anus no erythema no bleeding none tender on palpate that a mild engorged external hemorrhoid noted Objective: 05/17/18 14:51 Vital Signs Temperature 98.8 F 05/17/18 13:31 Pulse Rate 79 05/17/18 13:31 Respiratory Rate 18 05/17/18 13:31 Blood Pressure 133/76 05/17/18 13:31 O2 Sat by Pulse Oximetry (%) Laboratory Last Values WBC 6.8 K/mm3 (4.0-10.0) 05/15/18 07:50 RBC 4.61 M/mm3 (4.00-5.60) 05/15/18 07:50 Hgb 14.4 GM/dL (11.7-16.9) 05/15/18 07:50 Hct 43.1 % (35.4-49) 05/15/18 07:50 MCV 93.4 fl (80-96) 05/15/18 07:50 MCH 31.3 pg (25.7-33.7) 05/15/18 07:50 MCHC 33.6 g/dl (32.0-35.9) 05/15/18 07:50 RDW 13.9 % (11.9-15.9) 05/15/18 07:50 Plt Count 213 K/MM3 (134-434) 05/15/18 07:50 MPV 8.5 fl (7.5-11.1) D 05/15/18 07:50 Sodium 141 mmol/L (136-145) 05/15/18 07:50 Potassium 3.9 mmol/L (3.5-5.1) 05/15/18 07:50 Chloride 107 mmol/L (98-107) 05/15/18 07:50 Carbon Dioxide 30 mmol/L (21-32) 05/15/18 07:50 Anion Gap 4 MMOL/L (8-16) L 05/15/18 07:50 BUN 13 mg/dL (7-18) 05/15/18 07:50 Creatinine 0.7 mg/dL (0.55-1.3) 05/15/18 07:50 Creat Clearance w eGFR > 60 (>60) 05/15/18 07:50 POC Glucometer 133 UNITS (80-120) 05/17/18 05:53 Random Glucose 115 mg/dL (74-106) H 05/15/18 07:50 Calcium 8.4 mg/dL (8.5-10.1) L 05/15/18 07:50 Total Bilirubin 0.7 mg/dL (0.2-1) 05/15/18 07:50 AST 17 U/L (15-37) 05/15/18 07:50 ALT 24 U/L (13-61) 05/15/18 07:50 Alkaline Phosphatase 40 U/L (45-117) L 05/15/18 07:50 Total Protein 6.1 g/dl (6.4-8.2) L 05/15/18 07:50 Albumin 3.0 g/dl (3.4-5.0) L 05/15/18 07:50 RPR Titer Nonreactive (NONREACTIVE) 05/15/18 07:50 lab noted Assessment: 05/17/18 14:52 mild withdrawal sx hemorrhoid 05/17/18 15:00 the science writer concur external hemorrhoid Plan: continue detox Metamucil daily oral fluid intake exercise stool softener over the counter personal hygiene recommend hemorrhoid surgically removal if necessary
[2018-05-17] MEDS: chlordiazePOXIDE HCL 10 MG CAPSULE PO SCH ×2 (18:02→22:20)
[2018-05-17] MEDS: THIAMINE HCL 100 MG TABLET (FP) PO SCH (22:20)
[2018-05-17] MEDS: MELATONIN 5 MG TABLETS PO PRN (22:20)
[2018-05-18] MEDS: LOPERAMIDE HCL 2 MG CAPSULE PO PRN (04:22)
[2018-05-18] MEDS: chlordiazePOXIDE HCL 10 MG CAPSULE PO SCH ×2 (04:22→10:42)
[2018-05-18] MEDS: MAG HYDROX/AL HYDROX/SIMETH 30 ML UNIT-DOSE CUP PO PRN (09:16)
[2018-05-18] MEDS: PRENATAL VITAMINS W/ FOLIC ACID TABLET (FP) PO SCH (10:41)
[2018-05-18 13:38] VITALS: BP 123/71; PULSE 75; TEMP 96.5
--- NOTE | 2018-05-18 15:12 | DS ---
[facility] Detox Discharge Summary Admission Date: 05/14/18 Discharge Date: 05/18/18 - History Present History: Opioid Dependence Additional Comments: 47 years old male admitted on 05/14/18 for alcohol withdrawal stabilization [facility] detox [facility] Physical Exam Results Vital Signs: Vital Signs Temperature 96.5 F L 05/18/18 13:38 Pulse Rate 75 05/18/18 13:38 Respiratory Rate 18 05/18/18 13:38 Blood Pressure 123/71 05/18/18 13:38 O2 Sat by Pulse Oximetry (%) Pertinent Admission Physical Exam Findings: alcohol withdrawal sx Laboratory Last Values WBC 6.8 K/mm3 (4.0-10.0) 05/15/18 07:50 RBC 4.61 M/mm3 (4.00-5.60) 05/15/18 07:50 Hgb 14.4 GM/dL (11.7-16.9) 05/15/18 07:50 Hct 43.1 % (35.4-49) 05/15/18 07:50 MCV 93.4 fl (80-96) 05/15/18 07:50 MCH 31.3 pg (25.7-33.7) 05/15/18 07:50 MCHC 33.6 g/dl (32.0-35.9) 05/15/18 07:50 RDW 13.9 % (11.9-15.9) 05/15/18 07:50 Plt Count 213 K/MM3 (134-434) 05/15/18 07:50 MPV 8.5 fl (7.5-11.1) D 05/15/18 07:50 Sodium 141 mmol/L (136-145) 05/15/18 07:50 Potassium 3.9 mmol/L (3.5-5.1) 05/15/18 07:50 Chloride 107 mmol/L (98-107) 05/15/18 07:50 Carbon Dioxide 30 mmol/L (21-32) 05/15/18 07:50 Anion Gap 4 MMOL/L (8-16) L 05/15/18 07:50 BUN 13 mg/dL (7-18) 05/15/18 07:50 Creatinine 0.7 mg/dL (0.55-1.3) 05/15/18 07:50 Creat Clearance w eGFR > 60 (>60) 05/15/18 07:50 POC Glucometer 133 UNITS (80-120) 05/17/18 05:53 Random Glucose 115 mg/dL (74-106) H 05/15/18 07:50 Calcium 8.4 mg/dL (8.5-10.1) L 05/15/18 07:50 Total Bilirubin 0.7 mg/dL (0.2-1) 05/15/18 07:50 AST 17 U/L (15-37) 05/15/18 07:50 ALT 24 U/L (13-61) 05/15/18 07:50 Alkaline Phosphatase 40 U/L (45-117) L 05/15/18 07:50 Total Protein 6.1 g/dl (6.4-8.2) L 05/15/18 07:50 Albumin 3.0 g/dl (3.4-5.0) L 05/15/18 07:50 RPR Titer Nonreactive (NONREACTIVE) 05/15/18 07:50 lab noted - Treatment Hospital Course: Detox Protocol Followed, Detoxed Safely, Responded well, Discharged Condition Good, Rehab Referral Accepted Patient has Accepted a Rehab Referral to: [facility] - Medication Discharge Medications: Ambulatory Orders NK [No Known Home Medication] 02/16/16 - Diagnosis (1) Drug-induced mood disorder Status: Suspected (2) HTN (hypertension) Status: Chronic Qualifiers: Hypertension type: essential hypertension Qualified Code(s): I10 - Essential (primary) hypertension (3) Alcohol dependence with uncomplicated withdrawal Status: Acute (4) Diabetes mellitus Status: Chronic Qualifiers: Diabetes mellitus type: type 2 Diabetes mellitus ad terminal makeup operator insulin use: without shelter use Diabetes mellitus complication status: without complication Qualified Code(s): E11.9 - Type 2 diabetes mellitus without complications (5) Nicotine dependence Status: Acute Qualifiers: Nicotine product type: cigarettes Substance use status: in withdrawal Qualified Code(s): F17.213 - Nicotine dependence, cigarettes, with withdrawal - AMA Did Patient Leave Against Medical Advice: No
== END 2018-05-18 14:05 | disposition home or self-care (01) | DRG 897 ==
LOC: YASAS 10:54 → Y3N 16:28
PROVIDERS: ADMIT Surgery; ATTEND Surgery
PROC: HZ2ZZZZ Detoxification Services for Substance Abuse Treatment (ICD-10-PCS; principal; 2018-05-14)
DX: F10.230 Alcohol dependence with withdrawal, uncomplicated (principal); F14.20 Cocaine dependence, uncomplicated; F12.10 Cannabis abuse, uncomplicated; F17.213 Nicotine dependence, cigarettes, with withdrawal; F19.24 Other psychoactive substance dependence with psychoactive substance-induced mood disorder; F32.9 Major depressive disorder, single episode, unspecified; I10 Essential (primary) hypertension; E11.9 Type 2 diabetes mellitus without complications; E78.00 Pure hypercholesterolemia, unspecified; E66.9 Obesity, unspecified; Z68.31 Body mass index [BMI] 31.0-31.9, adult; K64.4 Residual hemorrhoidal skin tags; Z91.5 Personal history of self-harm
CPT/HCPCS: 36415; 80053; 82962; 85027; 86593; 93005; 93010

== ENCOUNTER 2019-03-05 11:39 | Inpatient (IN) | payer OTHER ==
[2019-03-05 12:07] VITALS: BMI 34.4
--- NOTE | 2019-03-05 13:35 | HP ---
CIWA Score Nausea/Vomitin-Mild Nausea/No Vomiting Muscle Tremors: 2 Anxiety: 3 Agitation: 3 Paroxysmal Sweats: 2 Orientation: 1-Uncertain about Date Tacttile Disturbances: 3-Moderate Itch/Numb/Burn Auditory Disturbances: 0-None Visual Disturbances: 0-None Headache: 0-None Present CIWA-Ar Total Score: 15 - Admission Criteria OASAS Guidelines: Admission for Medically Managed Detox: Requires at least one of the followin. CIWA greater than 12 2. Seizures within the past 24 hours 3. Delirium tremens within the past 24 hours 4. Hallucinations within the past 24 hours 5. Acute intervention needed for co occurring medical disorder 6. Acute intervention needed for co occurring psychiatric disorder 7. Severe withdrawal that cannot be handled at a lower level of care (continued vomiting, continued diarrhea, abnormal vital signs) requiring intravenous medication and/or fluids 8. Patient presents the following: CIWA greater than 12 Admission Criteria Met: Admission criteria met Admitting History and Physical - Admission Chief Complaint: alcohol withdrawal sx History of Present Illness: Patient is a 48 yo AA male domicile is with hx of alcohol and cocaine dependence is here seeking inpatient detox d/t withdrawal sx. Reports six year sobriety and relapsed in 2014, has had difficulty maintaining sobriety, last detox [facility] Apr 2018. PMHX: remote seizure with last 15 years ago, DM II diet controlled. Psych: bipolar, depression and insomnia not currently on meds. Denies SI/HI. History Source: Patient Limitations to Obtaining History: No Limitations - Smoking History Smoking history: Current every day smoker Have you smoked in the past 12 months: Yes Aproximately how many cigarettes per day: 10 - Alcohol/Substance Use Hx Alcohol Use: Yes Admission [facility] Allergies/Adverse Reactions: Allergies Allergy/AdvReac Type Severity Reaction Status Date / Time No Known Allergies Allergy Verified 03/05/19 12:02 - Ebola screening Have you traveled outside of the country in the last 21 days: No (N) Have you had contact with anyone from an Ebola affected area: No Do you have a fever: No - Review of Systems Constitutional: Changes in sleep, Other (weight fluctuation) EENT: reports: No Symptoms Reported Respiratory: reports: No Symptoms reported Cardiac: reports: Lightheadedness GI: reports: Diarrhea, Nausea, Poor Appetite, Poor Fluid Intake : reports: No Symptoms Reported Musculoskeletal: reports: Back Pain Integumentary: reports: Pruritus, Rash (skin thicking around torso and right upper shoulder) Neuro: reports: No Symptoms reported Endocrine: reports: Increased Thirst Hematology: reports: No Symptoms Reported Psychiatric: reports: Orientated x3, Agitated Other Systems: Reviewed and Negative Patient History - Patient Medical History Hx Anemia: No Hx Asthma: No Hx Chronic Obstructive Pulmonary Disease (COPD): No Hx Cancer: Yes (history of testicle cancer 1973) Hx Cardiac Disorders: No Hx Congestive Heart Failure: No Hx Hypertension: Yes (not on meds) Hx Hypercholesterolemia: Yes (NO MED) Hx Pacemaker: No HX Cerebrovascular Accident: No Hx Seizures: No Hx Dementia: No Hx Diabetes: Yes (Type II diet controlled.) Hx Gastrointestinal Disorders: No Hx Liver Disease: No Hx Genitourinary Disorders: No Hx Sexually Transmitted Disorders: No Hx Renal Disease (ESRD): No Hx Thyroid Disease: No Hx Human Immunodeficiency Virus (HIV): No (LAST 2010 NEGATIVE) Hx Hepatitis C: No Hx Depression: Yes (hx hospitalized, hx meds(rispiradol, zoloft, gabapentin)) Hx Suicide Attempt: Yes (2013 - tried to jump off bridge) Hx Bipolar Disorder: Yes (? 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 History Hx Alcohol Use: Yes Hx Substance Use: Yes Substance Use Type: Alcohol, Cocaine Hx Substance Use Treatment: Yes ([facility] April 2018) - Substances abused Alcohol Substance route: Oral Frequency: Daily Amount used: 4 cans of beer (24 oz ) Age of first use: 11 Date of last use: 03/05/19 Crack Substance route: Smoking Frequency: 3-6 times per week Amount used: 2 bags ($10) Age of first use: 14 Date of last use: 03/04/19 Admission Physical Exam [facility] - Vital Signs Vital Signs: Vital Signs - 24 hr 03/05/19 12:03 Temperature 98.0 F Pulse Rate 73 Respiratory 18 Rate Blood Pressure 150/90 - Physical General Appearance: Yes: Disheveled, Anxious HEENTM: Yes: EOMI, Hearing grossly Normal, Normal ENT Inspection, Normocephalic , Normal Voice, KITTY, Pharynx Normal, Tm's normal Respiratory: Yes: Chest Non-Tender, Lungs Clear, Normal Breath Sounds, No Respiratory Distress, No Accessory Muscle Use Neck: Yes: Within Normal Limits Breast: Yes: Breast Exam Deferred Cardiology: Yes: Regular Rhythm, Regular Rate Abdominal: Yes: Normal Bowel Sounds, Non Tender, Flat, Soft Genitourinary: Yes: Within Normal Limits Back: Yes: Normal Inspection Musculoskeletal: Yes: Within Normal Limits Extremities: Yes: Within Normal Limits Neurological: Yes: inventory control supervisor II-XII NML intact, Fully Oriented, Alert, Motor Strength 5/5, Depressed Affect Integumentary: Yes: Normal Color, Warm, Other (skin lichification on right trunck and right upper shoulder) Lymphatic: Yes: Within Normal Limits - Diagnostic (1) Eczema Current Visit: Yes Status: Chronic Qualifiers: Eczema type: flexural Qualified Code(s): L20.82 - Flexural eczema (2) Cocaine dependence, uncomplicated Current Visit: Yes Status: Acute (3) Nicotine dependence Current Visit: Yes Status: Acute Qualifiers: Nicotine product type: cigarettes Substance use status: in withdrawal Qualified Code(s): F17.213 - Nicotine dependence, cigarettes, with withdrawal (4) Diabetes mellitus type 2, diet-controlled Current Visit: Yes Status: Chronic (5) HTN (hypertension) Current Visit: Yes Status: Chronic Qualifiers: Hypertension type: essential hypertension Qualified Code(s): I10 - Essential (primary) hypertension (6) Obesity Current Visit: Yes Status: Chronic Cleared for Admission [facility] - Detox or Rehab [facility] Level of Care: Medically Managed Detox Regimen/Protocol: Valium Breathalyzer - Breathalyzer Breathalyzer: 0.011 Urine Drug Screen - Test Device Lot number: [id number] Expiration date: 10/19/20 - Control Is test valid?: Yes - Results Drug screen NEGATIVE: No Urine drug screen results: BOY-Cocaine Inpatient Rehab Admission - Rehab Decision to Admit Inpatient rehab admission?: No
[2019-03-05] MEDS ORDERED: COLLOIDAL OATMEAL 1 BAR EACH TP PRN (13:42)
[2019-03-05] MEDS ORDERED: IBUPROFEN 400 MG TABLET (FP) PO PRN (13:43)
[2019-03-05] MEDS ORDERED: MAGNESIUM HYDROX 2400MG/30ML ORAL SUSPENSION 30 ML CUP PO PRN (13:43)
[2019-03-05] MEDS ORDERED: MENTHOL/PHENOL 1 EACH UD MM PRN (13:43)
[2019-03-05] MEDS ORDERED: MAG HYDROX/AL HYDROX/SIMETH 30 ML UNIT-DOSE CUP PO PRN (13:43)
[2019-03-05] MEDS ORDERED: METHOCARBAMOL 500 MG TABLET PO PRN (13:43)
[2019-03-05] MEDS ORDERED: NICOTINE POLACRILEX 2 MG GUM BUC PRN (13:43)
[2019-03-05] MEDS ORDERED: ACETAMINOPHEN 325 MG TABLET (FP) PO PRN ×2 (13:43)
[2019-03-05] MEDS ORDERED: BISMUTH SUBSALICYLATE 524 MG/30 ML UD PO PRN (13:43)
[2019-03-05] MEDS ORDERED: diazePAM 5 MG TABLET PO PRN (13:43)
[2019-03-05] MEDS ORDERED: MAGNESIUM CITRATE 300 ML BOTTLE PO PRN (13:43)
[2019-03-05] MEDS ORDERED: hydrOXYzine PAMOATE 25 MG CAPSULE (FP) PO PRN (13:43)
[2019-03-05] MEDS ORDERED: hydrOXYzine PAMOATE 50 MG CAPSULE (FP) PO PRN (14:50)
[2019-03-05] MEDS: diazePAM 5 MG TABLET PO SCH ×2 (14:57→22:10)
[2019-03-05] MEDS: VITAMINS A AND D TOPICAL OINTMENT 60 GM TUBE TP SCH ×2 (15:43→22:10)
[2019-03-05] MEDS: THIAMINE HCL 100 MG TABLET (FP) PO SCH (22:10)
[2019-03-05] MEDS: HYDROCORTISONE 1% TOPICAL OINT 30 GM TUBE TP PRN (22:11)
[2019-03-05] MEDS: MELATONIN 5 MG TABLETS PO PRN (22:11)
[2019-03-06] MEDS: diazePAM 5 MG TABLET PO SCH ×3 (06:37→22:02)
--- NOTE | 2019-03-06 09:13 | PN ---
S CIWA - CIWA Score Nausea/Vomitin-Mild Nausea/No Vomiting Muscle Tremors: 4-Moderate,w/Arms Extend Anxiety: 3 Agitation: 2 Paroxysmal Sweats: 2 Orientation: 1-Uncertain about Date (date of week) Tacttile Disturbances: 0-None Auditory Disturbances: 0-None Visual Disturbances: 0-None Headache: 1-Very Mild CIWA-Ar Total Score: 14 B[facility] Progress Note (SOAP) Subjective: 48 years old male admitted on 03/05/19 for alcohol withdrawal sx management treating with valium detox regimen ate breakfast resting in bed feeling tired limited conversation with staff Objective: 03/06/19 09:10 Vital Signs Temperature 97.4 F L 03/06/19 06:27 Pulse Rate 58 L 03/06/19 06:27 Respiratory Rate 18 03/06/19 06:27 Blood Pressure 118/71 03/06/19 06:27 O2 Sat by Pulse Oximetry (%) Laboratory Last Values POC Glucometer 93 UNITS (80-120) 03/06/19 06:39 03/06/19 09:11 lab pending 03/06/19 09:11 overweight glucose elevation by history discuss weight loss and no concentrated sugar Assessment: 03/06/19 09:12 alcohol withdrawal Plan: valium regimen
--- NOTE | 2019-03-06 09:31 | CONSULT ---
[facility] Psychiatric Consult - Data Date of interview: 03/06/19 Admission source: [facility] Identifying data: Patient is a 48 year old single male, without children, unemployed, and is supported by [facility]. This is one of multiple admissions for patient. Patient admitted to for cocaine dependence. Substance Abuse History: Smoking Cessation. Smoking history: Current every day smoker. Have you smoked in the past 12 months: Yes. Aproximately how many cigarettes per day: 10. Cigars Per Day: 0. Hx Chewing Tobacco Use: No. Initiated information on smoking cessation: Yes. 'Breaking Loose' booklet given : 03/05/19. - Substance & Tx. History. Hx Alcohol Use: Yes. Hx Substance Use : Yes. Substance Use Type: Alcohol, Cocaine. Hx Substance Use Treatment: Yes ( [facility] April 2018). - Substances abused. Alcohol. Substance route: Oral. Frequency: Daily. Amount used: 4 cans of beer (24 oz ). Age of first use: 11. Date of last use: 03/05/19. Crack. Substance route: Smoking. Frequency: 3-6 times per week. Amount used: 2 bags ($10). Age of first use: 14. Date of last use: 03/04/19 Medical History: Diabetes II Psychiatric History: Mr. Molina was first diagnosed with Bipolar disorder in 2004 after he was admitted to [facility] for mood instability. Througout the years he reports a total of five psychiatric hospitalizations all at [facility], most recently five years ago for depression. He reports past treatment with zoloft, gabapentin, trazodone and other psychotropic agents he can't recall. Patient is not currently under psychiatric care. Denies history of suicide attempt. At present he reports feeling anxious and is experiencing difficulty sleeping. Physical/Sexual Abuse/Trauma History: denies. Mental Status Exam - Mental Status Exam Alert and Oriented to: Time, Place, Person Cognitive Function: Good Patient Appearance: Well Groomed Mood: Euthymic Affect: Appropriate Patient Behavior: Cooperative Speech Pattern: Appropriate Voice Loudness: Mildly Soft/Quiet Thought Process: Goal Oriented Thought Disorder: Not Present Hallucinations: Denies Suicidal Ideation: Denies Homicidal Ideation: Denies Insight/Judgement: Poor Sleep: Poorly Appetite: Fair Muscle strength/Tone: Normal Gait/Station: Normal Psychiatric Findings - Problem List ([place] 1, 2,3) (1) Mood disorder Status: Suspected (2) Cocaine dependence, uncomplicated Status: Acute (3) Nicotine dependence Status: Acute Qualifiers: Nicotine product type: cigarettes Substance use status: in withdrawal Qualified Code(s): F17.213 - Nicotine dependence, cigarettes, with withdrawal (4) Alcohol dependence with uncomplicated withdrawal Status: Acute (5) Substance-induced sleep disorder Status: Acute (6) Substance induced mood disorder Status: Suspected - Initial Treatment Plan Initial Treatment Plan: Psychoeducation provided. Detoxification in progress. Will order Vistaril 50mg q6H + Trazodone 50mg HS. Benefits and side effects discussed. Verbal consent given.
[2019-03-06] MEDS: VITAMINS A AND D TOPICAL OINTMENT 60 GM TUBE TP SCH ×2 (10:09→22:01)
[2019-03-06] MEDS: PRENATAL VITAMINS W/ FOLIC ACID TABLET (FP) PO SCH (10:10)
[2019-03-06] MEDS: NICOTINE 14 MG/24 HOURS TOPICAL PATCH TD SCH (10:11)
[2019-03-06 11:00] LABS: HEMOGLOBIN 15.8 GM/dL (11.7-16.9); MCHC 32.3 g/dl (32.0-35.9); MEAN CELL VOLUME 92.9 fl (80-96); MEAN PLT VOLUME 8.9 fl (7.5-11.1); PLATELET COUNT 213 K/MM3 (134-434); RBC 5.27 M/mm3 (4.00-5.60); RDW 13.3 % (11.9-15.9); WHITE BLOOD COUNT 9.3 K/mm3 (4.0-10.0)
[2019-03-06 11:37] LABS: ALBUMIN 3.4 g/dl (3.4-5.0); BILIRUBIN,TOTAL 1.4 mg/dL (0.2-1); BLOOD UREA NITROGEN 13.4 mg/dL (7-18); CALCIUM 8.7 mg/dL (8.5-10.1); CREATININE 0.6 mg/dL (0.55-1.3); POTASSIUM 4.6 mmol/L (3.5-5.1)
[2019-03-06] MEDS ORDERED: FLU VACCINE QUAD 60 MCG/0.5 ML (MDV 19-20) IM ONE (12:00)
[2019-03-06] MEDS: HYDROCORTISONE 1% TOPICAL OINT 30 GM TUBE TP PRN (22:01)
[2019-03-06] MEDS: traZODone HCL 50 MG TABLET (FP) PO SCH (22:02)
[2019-03-06] MEDS: THIAMINE HCL 100 MG TABLET (FP) PO SCH (22:02)
[2019-03-07] MEDS: diazePAM 5 MG TABLET PO SCH ×2 (05:14→17:02)
--- NOTE | 2019-03-07 09:00 | PN ---
S CIWA - CIWA Score Nausea/Vomitin-Mild Nausea/No Vomiting Muscle Tremors: 2 Anxiety: 2 Agitation: 1-Slight > Activity Paroxysmal Sweats: 2 Orientation: 0-Oriented Tacttile Disturbances: 0-None Auditory Disturbances: 0-None Visual Disturbances: 0-None Headache: 1-Very Mild CIWA-Ar Total Score: 9 BHS Progress Note (SOAP) Subjective: 48 years old male admitted on 03/05/19 for alcohol withdrawal sx management treating with valium detox regimnen feeling better today less tremor trouble fall a sleep but slept through the night Objective: 03/07/19 09:10 Vital Signs Temperature 97 F L 03/07/19 05:51 Pulse Rate 63 03/07/19 05:51 Respiratory Rate 18 03/07/19 05:51 Blood Pressure 142/82 03/07/19 05:51 O2 Sat by Pulse Oximetry (%) Laboratory Last Values WBC 9.3 K/mm3 (4.0-10.0) 03/06/19 08:15 RBC 5.27 M/mm3 (4.00-5.60) 03/06/19 08:15 Hgb 15.8 GM/dL (11.7-16.9) 03/06/19 08:15 Hct 49.0 % (35.4-49) 03/06/19 08:15 MCV 92.9 fl (80-96) 03/06/19 08:15 MCH 30.0 pg (25.7-33.7) 03/06/19 08:15 MCHC 32.3 g/dl (32.0-35.9) 03/06/19 08:15 RDW 13.3 % (11.9-15.9) 03/06/19 08:15 Plt Count 213 K/MM3 (134-434) 03/06/19 08:15 MPV 8.9 fl (7.5-11.1) 03/06/19 08:15 Sodium 140 mmol/L (136-145) 03/06/19 08:15 Potassium 4.6 mmol/L (3.5-5.1) 03/06/19 08:15 Chloride 107 mmol/L (98-107) 03/06/19 08:15 Carbon Dioxide 28 mmol/L (21-32) 03/06/19 08:15 Anion Gap 6 MMOL/L (8-16) L 03/06/19 08:15 BUN 13.4 mg/dL (7-18) 03/06/19 08:15 Creatinine 0.6 mg/dL (0.55-1.3) 03/06/19 08:15 Est GFR (CKD-EPI)AfAm 135.87 03/06/19 08:15 Est GFR (CKD-EPI)NonAf 117.23 03/06/19 08:15 POC Glucometer 126 UNITS (80-120) 03/07/19 05:13 Random Glucose 82 mg/dL (74-106) 03/06/19 08:15 Calcium 8.7 mg/dL (8.5-10.1) 03/06/19 08:15 Total Bilirubin 1.4 mg/dL (0.2-1) H 03/06/19 08:15 AST 19 U/L (15-37) 03/06/19 08:15 ALT 33 U/L (13-61) 03/06/19 08:15 Alkaline Phosphatase 49 U/L (45-117) 03/06/19 08:15 Total Protein 7.0 g/dl (6.4-8.2) 03/06/19 08:15 Albumin 3.4 g/dl (3.4-5.0) 03/06/19 08:15 RPR Titer Nonreactive (NONREACTIVE) 03/06/19 08:15 HIV 1&2 Antibody Screen Negative 03/06/19 08:15 HIV P24 Antigen Negative 03/06/19 08:15 lab noted bp elevation begin amlodipine 5 mg po hs daily patient will follow up with [facility] service for bp monitoring 03/07/19 09:13 Assessment: 03/07/19 09:13 alcohol withdrawal sx Plan: valium regimen
[2019-03-07] MEDS: NICOTINE 14 MG/24 HOURS TOPICAL PATCH TD SCH (10:18)
[2019-03-07] MEDS: PRENATAL VITAMINS W/ FOLIC ACID TABLET (FP) PO SCH (10:18)
[2019-03-07] MEDS: VITAMINS A AND D TOPICAL OINTMENT 60 GM TUBE TP SCH ×2 (10:19→22:21)
[2019-03-07] MEDS ORDERED: amLODIPine BESYLATE 5 MG TABLET (FP) PO SCH (22:00)
[2019-03-07] MEDS: MELATONIN 5 MG TABLETS PO PRN (22:20)
[2019-03-07] MEDS: THIAMINE HCL 100 MG TABLET (FP) PO SCH (22:20)
[2019-03-07] MEDS: traZODone HCL 50 MG TABLET (FP) PO SCH (22:20)
[2019-03-08] MEDS ORDERED: diazePAM 5 MG TABLET PO ONE (06:00)
[2019-03-08 09:19] VITALS: BP 131/73; PULSE 72; TEMP 97.6
--- NOTE | 2019-03-08 14:58 | DS ---
[facility] Detox Discharge Summary Admission Date: 03/05/19 Discharge Date: 03/08/19 - History Present History: Alcohol Dependence Additional Comments: 48 years old male admitted on 03/05/19 for alcohol withdrawal sx management treated with valium detox regimen patient tolerated well alert oriented x 3 cardiac s1s2 regular rate rhythm history of "heart attack" denies chest pain no shortness of breath respiratory clear lung bilaterally on auscultation skin warm and dry Pertinent Past History: patient may return to [facility] admission - Physical Exam Results Vital Signs: Vital Signs Temperature 97.6 F 03/08/19 09:18 Pulse Rate 72 03/08/19 09:18 Respiratory Rate 18 03/08/19 09:18 Blood Pressure 131/73 03/08/19 09:18 O2 Sat by Pulse Oximetry (%) Pertinent Admission Physical Exam Findings: alcohol withdrawal sx - Treatment Hospital Course: Detox Protocol Followed, Detoxed Safely, Responded well, Discharged Condition Good, Rehab Referral Accepted Patient has Accepted a Rehab Referral to: [facility] - Medication Discharge Medications: Ambulatory Orders Amlodipine Besylate [Norvasc -] 5 mg PO HS #14 tablet 03/07/19 - Diagnosis (1) Alcohol dependence with uncomplicated withdrawal Status: Acute (2) Nicotine dependence Status: Acute Qualifiers: Nicotine product type: cigarettes Substance use status: in withdrawal Qualified Code(s): F17.213 - Nicotine dependence, cigarettes, with withdrawal (3) Substance induced mood disorder Status: Suspected (4) Diabetes mellitus Status: Chronic Qualifiers: Diabetes mellitus type: type 2 Diabetes mellitus assisted insulin use: without assisted use Diabetes mellitus complication status: without complication Qualified Code(s): E11.9 - Type 2 diabetes mellitus without complications (5) Eczema Status: Chronic Qualifiers: Eczema type: flexural Qualified Code(s): L20.82 - Flexural eczema (6) HTN (hypertension) Status: Chronic Qualifiers: Hypertension type: essential hypertension Qualified Code(s): I10 - Essential (primary) hypertension (7) Hypertension Status: Chronic Qualifiers: Hypertension type: essential hypertension Qualified Code(s): I10 - Essential (primary) hypertension (8) Obesity Status: Chronic - AMA Did Patient Leave Against Medical Advice: No CIWA Score - CIWA Score Nausea/Vomitin-No Nausea/No Vomiting Muscle Tremors: 1-None Visible, but [place] Anxiety: 1-Mildly Anxious Agitation: 1-Slight > Activity Paroxysmal Sweats: 1-Minimal Palms Moist Orientation: 0-Oriented Tacttile Disturbances: 0-None Auditory Disturbances: 0-None Visual Disturbances: 0-None Headache: 1-Very Mild CIWA-Ar Total Score: 5
== END 2019-03-08 09:19 | disposition home or self-care (01) | DRG 897 ==
LOC: YASAS 11:39 → Y3N 13:41
PROVIDERS: ADMIT Allergy & Immunology; ATTEND Allergy & Immunology
PROC: HZ2ZZZZ Detoxification Services for Substance Abuse Treatment (ICD-10-PCS; principal; 2019-03-05)
DX: F10.230 Alcohol dependence with withdrawal, uncomplicated (principal); F14.20 Cocaine dependence, uncomplicated; F19.282 Other psychoactive substance dependence with psychoactive substance-induced sleep disorder; F17.213 Nicotine dependence, cigarettes, with withdrawal; F19.24 Other psychoactive substance dependence with psychoactive substance-induced mood disorder; F39 Unspecified mood [affective] disorder; I10 Essential (primary) hypertension; E11.9 Type 2 diabetes mellitus without complications; L20.82 Flexural eczema; Z85.47 Personal history of malignant neoplasm of testis; E66.9 Obesity, unspecified; Z68.34 Body mass index [BMI] 34.0-34.9, adult; Z91.5 Personal history of self-harm
CPT/HCPCS: 36415; 80053; 82962; 85027; 86593; 87389; G0008; Q2036

== ENCOUNTER 2020-03-10 15:58 | Inpatient (IN) | payer OTHER ==
[2020-03-10 16:46] VITALS: BMI 43.9
[2020-03-10] MEDS ORDERED: MAGNESIUM HYDROX 2400MG/30ML ORAL SUSPENSION 30 ML CUP PO PRN (17:47)
[2020-03-10] MEDS ORDERED: MENTHOL/PHENOL 1 EACH UD MM PRN (17:47)
[2020-03-10] MEDS ORDERED: MAGNESIUM CITRATE 300 ML BOTTLE PO PRN (17:47)
[2020-03-10] MEDS ORDERED: BISMUTH SUBSALICYLATE 524 MG/30 ML UD PO PRN (17:47)
[2020-03-10] MEDS ORDERED: ONDANSETRON *ODT* 4 MG TABLET SL PRN (17:47)
[2020-03-10] MEDS ORDERED: NICOTINE POLACRILEX 2 MG GUM BUC PRN (17:47)
[2020-03-10] MEDS ORDERED: MAG HYDROX/AL HYDROX/SIMETH 30 ML UNIT-DOSE CUP PO PRN (17:47)
[2020-03-10] MEDS ORDERED: ACETAMINOPHEN 325 MG TABLET (FP) PO PRN ×2 (17:47)
[2020-03-10] MEDS ORDERED: chlordiazePOXIDE HCL 25 MG CAPSULE PO PRN (17:47)
[2020-03-10] MEDS: hydrOXYzine PAMOATE 25 MG CAPSULE (FP) PO SCH ×2 (18:42→22:08)
[2020-03-10] MEDS: THIAMINE HCL 100 MG TABLET (FP) PO SCH (22:08)
[2020-03-10] MEDS: chlordiazePOXIDE HCL 25 MG CAPSULE PO SCH (22:08)
[2020-03-10] MEDS: BACITRACIN 0.9 GM PACKET TP SCH (22:08)
[2020-03-10] MEDS: FLUOCINONIDE 0.05% CREAM (60 GM TUBE) TP SCH (22:09)
[2020-03-10] MEDS: MELATONIN 5 MG TABLETS PO SCH (22:09)
[2020-03-10] MEDS: TOLNAFTATE 1% CREAM 15 GM TUBE TP SCH (22:09)
[2020-03-11] MEDS: chlordiazePOXIDE HCL 25 MG CAPSULE PO SCH ×4 (05:26→22:33)
[2020-03-11] MEDS: hydrOXYzine PAMOATE 25 MG CAPSULE (FP) PO SCH ×5 (05:27→22:35)
[2020-03-11] MEDS: BACITRACIN 0.9 GM PACKET TP SCH ×2 (10:31→22:33)
[2020-03-11] MEDS: FLUOCINONIDE 0.05% CREAM (60 GM TUBE) TP SCH ×2 (10:32→22:34)
[2020-03-11] MEDS: NICOTINE 21 MG/24 HOURS TOPICAL PATCH TD SCH (10:36)
[2020-03-11] MEDS: PRENATAL VITAMINS W/ FOLIC ACID TABLET (FP) PO SCH (10:38)
[2020-03-11] MEDS: TOLNAFTATE 1% CREAM 15 GM TUBE TP SCH ×2 (10:38→22:35)
[2020-03-11 11:31] LABS: HEMOGLOBIN 15.1 GM/dL (11.7-16.9); MCH 29.4 pg (25.7-33.7); MCHC 32.1 g/dl (32.0-35.9); MEAN CELL VOLUME 91.5 fl (80-96); MEAN PLT VOLUME 9.2 fl (7.5-11.1); PLATELET COUNT 198 K/MM3 (134-434); POTASSIUM 4.5 mmol/L (3.5-5.1); RBC 5.14 M/mm3 (4.00-5.60); RDW 13.7 % (11.9-15.9); WHITE BLOOD COUNT 8.7 K/mm3 (4.0-10.0)
[2020-03-11 11:38] LABS: CALCIUM 8.4 mg/dL (8.5-10.1)
[2020-03-11 11:39] LABS: BLOOD UREA NITROGEN 13.7 mg/dL (7-18)
[2020-03-11 11:41] LABS: CREATININE 0.7 mg/dL (0.55-1.3)
[2020-03-11 11:46] LABS: TOT PROT 6.2 g/dl (6.4-8.2)
[2020-03-11] MEDS: THIAMINE HCL 100 MG TABLET (FP) PO SCH (22:33)
[2020-03-11] MEDS: MELATONIN 5 MG TABLETS PO SCH (22:35)
[2020-03-12] MEDS: hydrOXYzine PAMOATE 25 MG CAPSULE (FP) PO SCH ×5 (05:12→22:24)
[2020-03-12] MEDS: chlordiazePOXIDE HCL 25 MG CAPSULE PO SCH ×4 (05:13→22:22)
[2020-03-12] MEDS: BACITRACIN 0.9 GM PACKET TP SCH ×2 (10:00→22:22)
[2020-03-12] MEDS: TOLNAFTATE 1% CREAM 15 GM TUBE TP SCH ×2 (10:03→22:24)
[2020-03-12] MEDS: PRENATAL VITAMINS W/ FOLIC ACID TABLET (FP) PO SCH (10:03)
[2020-03-12] MEDS: FLUOCINONIDE 0.05% CREAM (60 GM TUBE) TP SCH ×2 (10:04→22:22)
[2020-03-12] MEDS: NICOTINE 21 MG/24 HOURS TOPICAL PATCH TD SCH (10:04)
[2020-03-12] MEDS: THIAMINE HCL 100 MG TABLET (FP) PO SCH (22:22)
[2020-03-12] MEDS: MELATONIN 5 MG TABLETS PO SCH (22:24)
[2020-03-13] MEDS ORDERED: chlordiazePOXIDE HCL 10 MG CAPSULE PO PRN
[2020-03-13] MEDS: IBUPROFEN 400 MG TABLET (FP) PO PRN ×2 (03:43→14:44)
[2020-03-13] MEDS: chlordiazePOXIDE HCL 10 MG CAPSULE PO SCH ×4 (05:10→22:02)
[2020-03-13] MEDS: hydrOXYzine PAMOATE 25 MG CAPSULE (FP) PO SCH ×5 (05:10→22:01)
[2020-03-13] MEDS ORDERED: metFORMIN HCL 500 MG TABLET (FP) PO ONE (07:44)
[2020-03-13] MEDS: BACITRACIN 0.9 GM PACKET TP SCH ×2 (10:16→22:03)
[2020-03-13] MEDS: FLUOCINONIDE 0.05% CREAM (60 GM TUBE) TP SCH ×2 (10:17→22:04)
[2020-03-13] MEDS: TOLNAFTATE 1% CREAM 15 GM TUBE TP SCH ×2 (10:18→22:04)
[2020-03-13] MEDS: PRENATAL VITAMINS W/ FOLIC ACID TABLET (FP) PO SCH (10:18)
[2020-03-13] MEDS: NICOTINE 21 MG/24 HOURS TOPICAL PATCH TD SCH (10:18)
[2020-03-13] MEDS: METHOCARBAMOL 500 MG TABLET PO PRN (14:44)
[2020-03-13 14:49] LABS: PH,URINE 5.5 (5.0-8.0); URINE APPEARANCE CLEAR; URINE BILIRUBIN NEGATIVE (NEGATIVE); URINE COLOR YELLOW; URINE GLUCOSE (UA) 3+ (NEGATIVE); URINE KETONE TRACE (NEGATIVE); URINE LEUK ESTERASE NEGATIVE (NEGATIVE); URINE NITRITE NEGATIVE (NEGATIVE); URINE PROTEIN NEGATIVE (NEGATIVE); URINE UROBILINOGEN 0.2 mg/dL (0.2-1.0)
[2020-03-13] MEDS ORDERED: INSULIN (NOVOLOG) ASPART 100 UNITS/ML 10ML VIAL ONE (16:39)
[2020-03-13] MEDS: metFORMIN HCL 500 MG TABLET (FP) PO SCH (16:41)
[2020-03-13] MEDS: INSULIN (NOVOLOG) ASPART 100 UNITS/ML 10ML VIAL SQ SCH ×2 (16:42→21:42)
[2020-03-13] MEDS: THIAMINE HCL 100 MG TABLET (FP) PO SCH (22:01)
[2020-03-13] MEDS: MELATONIN 5 MG TABLETS PO SCH (22:02)
[2020-03-14] MEDS: METHOCARBAMOL 500 MG TABLET PO PRN (02:49)
[2020-03-14] MEDS ORDERED: chlordiazePOXIDE HCL 10 MG CAPSULE PO SCH (05:00)
[2020-03-14] MEDS: hydrOXYzine PAMOATE 25 MG CAPSULE (FP) PO SCH (05:56)
[2020-03-14] MEDS: metFORMIN HCL 500 MG TABLET (FP) PO SCH (06:19)
[2020-03-14] MEDS ORDERED: INSULIN (NOVOLOG) ASPART 100 UNITS/ML 10ML VIAL ONE ×2 (07:14→11:42)
[2020-03-14] MEDS: INSULIN (NOVOLOG) ASPART 100 UNITS/ML 10ML VIAL SQ SCH ×2 (07:18→12:03)
[2020-03-14] MEDS ORDERED: hydrOXYzine PAMOATE 25 MG CAPSULE (FP) PO PRN (09:42)
[2020-03-14] MEDS ORDERED: SODIUM CHLORIDE NASAL SPRAY 44 ML BOTTLE NS PRN (09:47)
[2020-03-14] MEDS: BACITRACIN 0.9 GM PACKET TP SCH (10:31)
[2020-03-14] MEDS: FLUOCINONIDE 0.05% CREAM (60 GM TUBE) TP SCH (10:32)
[2020-03-14] MEDS: NICOTINE 21 MG/24 HOURS TOPICAL PATCH TD SCH (10:32)
[2020-03-14] MEDS: PRENATAL VITAMINS W/ FOLIC ACID TABLET (FP) PO SCH (10:32)
[2020-03-14] MEDS: TOLNAFTATE 1% CREAM 15 GM TUBE TP SCH (10:33)
[2020-03-14 13:01] VITALS: BP 159/82; PULSE 87; TEMP 97.8
[2020-03-15] MEDS ORDERED: chlordiazePOXIDE HCL 10 MG CAPSULE PO ONE (05:00)
== END 2020-03-14 14:13 | disposition home or self-care (01) | DRG 897 ==
LOC: YASAS 15:58 → Y6N 18:05
PROVIDERS: ADMIT Allergy & Immunology; ATTEND Allergy & Immunology
PROC: HZ2ZZZZ Detoxification Services for Substance Abuse Treatment (ICD-10-PCS; principal; 2020-03-10)
DX: F10.230 Alcohol dependence with withdrawal, uncomplicated (principal); F14.20 Cocaine dependence, uncomplicated; F19.282 Other psychoactive substance dependence with psychoactive substance-induced sleep disorder; Z68.41 Body mass index [BMI] 40.0-44.9, adult; F17.210 Nicotine dependence, cigarettes, uncomplicated; F19.24 Other psychoactive substance dependence with psychoactive substance-induced mood disorder; F39 Unspecified mood [affective] disorder; I10 Essential (primary) hypertension; E11.9 Type 2 diabetes mellitus without complications; L20.82 Flexural eczema; B35.3 Tinea pedis; E66.9 Obesity, unspecified; Z79.84 Long term (current) use of oral hypoglycemic drugs
CPT/HCPCS: 36415; 80053; 81003; 82962; 83036; 85027; 86780; C9803; U0003